=== PATIENT | male | born 1960 | race Caucasian/White ===

== ENCOUNTER 2016-08-06 10:55 | Emergency (ER) | payer SELFPAY ==
[~2016-08-06] VITALS: Ht 177.8 cm; Wt 110.0 kg
[2016-08-06 11:04] VITALS: BP 200/100; PULSE 50; RESP 20; TEMP 98.9; O2SAT 98
[2016-08-06] MEDS ORDERED: FLUO40CA PO (11:11)
[2016-08-06] MEDS ORDERED: LITH300C2 PO (11:11)
[2016-08-06] MEDS ORDERED: ARIP1TAB11 PO (11:11)
[2016-08-06] MEDS ORDERED: ASPI325T PO (11:11)
--- NOTE | 2016-08-06 11:29 | PD ---
HPI Chief Complaint: Psychiatric Symptoms Time Seen by Provider: 11:26 Travel History International Travel<30 days: No Contact w/Intl Traveler<30days: No Traveled to known affect area: No History of Present Illness HPI 56-year-old male that presents to the ED for evaluation of Evans act. Patient was Evans acted by police after apparently he made suicidal statements to follow up with her. Patient apparently wants to kill himself because of worsening depression. Per patient he feels like he needs help. Patient was Evans acted for his unsafety. Patient denies any drugs or alcohol. Patient does have a history of depression and takes medications for it. He does have a history of hypertension. He has no allergies to medication. He has not seen anybody for this. She denies any hallucinations. Per patient he might also be bipolar. Patient is also homeless. [facility] Past Medical History Anxiety: Yes Depression: Yes Diminished Hearing: No Social History Alcohol Use: No Tobacco Use: No Substance Use: No Allergies-Medications (Allergen,Severity, Reaction): Coded Allergies: No Known Allergies (Unverified , 08/06/16) Reported Meds & Prescriptions Reported Meds & Active Scripts Active Reported [place] Carbonate 300 Mg Cap 300 Mg PO BID Aspirin 325 Mg Tab 325 Mg PO DAILY Fluoxetine (Fluoxetine HCl) 40 Mg Cap 40 Cap PO DAILY Aripiprazole 5 Mg Tab 5 Mg PO DAILY Review of Systems Except as stated in HPI: all other systems reviewed are Neg Physical Exam Narrative GENERAL: SKIN: Warm and dry. HEAD: Atraumatic. Normocephalic. EYES: Pupils equal and round. No scleral icterus. No injection or drainage. ENT: No nasal bleeding or discharge. Mucous membranes pink and moist. Tongue is midline. No uvula deviation. NECK: Trachea midline. No JVD. CARDIOVASCULAR: Regular rate and rhythm. No murmurs, S3, S4. RESPIRATORY: No accessory muscle use. Clear to auscultation. Breath sounds equal bilaterally. GASTROINTESTINAL: Abdomen soft, non-tender, nondistended. Hepatic and splenic margins not palpable. MUSCULOSKELETAL: Extremities without clubbing, cyanosis, or edema. No obvious deformities. Full range of motion of the upper and lower extremities bilaterally. 2+ pulses bilaterally. NEUROLOGICAL: Awake and alert. No obvious cranial nerve deficits. Motor grossly within normal limits. Five out of 5 muscle strength in the arms and legs. Normal speech. PSYCHIATRIC: Appropriate mood and affect; insight and judgment normal. Data Data Last Documented VS Vital Signs Date Time Temp Pulse Resp B/P Pulse Ox O2 Delivery O2 Flow Rate FiO2 08/06/16 11:04 98.9 50 20 200/100 98 Orders Complete Blood Count With Diff (08/06/16 11:16) Comprehensive Metabolic Panel (08/06/16 11:16) Drug Screen, Random Urine (08/06/16 11:16) Alcohol (Ethanol) (08/06/16 11:16) Psych Screen (08/06/16 11:16) MDM Medical Decision Making Medical Screen Exam Complete: Yes Emergency Medical Condition: Yes Medical Record Reviewed: Yes Differential Diagnosis Depression versus suicidal ideation versus anxiety versus adjustment disorder versus mood disorder versus bipolar disorder versus schizophrenia versus paranoid disorder versus psychosis versus substance abuse versus alcohol abuse versus alcohol induced psychosis versus homicidality addition versus cutting versus personality disorder Narrative Course 56-year-old male that presents to the ED for evaluation of psych. Patient was properly examined and was found to have signs and symptoms consistent with appears to be psychiatric illness. No sign of acute medical distress. Patient does have a high blood pressure initially but I will have them recheck the blood pressure to make sure this is an accurate reading. Otherwise labs will be done. Patient will be medically clear. Okay to be seen by psych. Mental health screening was discussed with the patient. Diagnosis Primary Impression: Depression Qualified Code: F33.1 - Moderate episode of recurrent major depressive disorder Kendall Parada Aug 06, 2016 11:29
[2016-08-06 11:55] LABS: AUTOMATED NEUTROPHIL # 5.9 TH/MM3 (1.8-7.7); BASOPHIL % 0.5 % (0.0-2.0); EOSINOPHIL # 0.1 TH/MM3 (0-0.4); EOSINOPHIL % 1.3 % (0.0-4.0); HEMATOCRIT 44.1 % (39.0-51.0); HEMO FLAGS DIFF FINAL; LYMPH % 20.2 % (9.0-44.0); LYMPHOCYTE # 1.7 TH/MM3 (1.0-4.8); MEAN CELL VOLUME 89.7 FL (80.0-100.0); MEAN CORPUSCULAR HEMOGLOBIN 31.1 PG (27.0-34.0); MEAN CORPUSCULAR HGB CONC 34.6 % (32.0-36.0); MONO % 7.3 % (0.0-8.0); NEUT % 70.7 % (16.0-70.0); PLATELET COUNT 241 TH/MM3 (150-450); RED BLOOD COUNT 4.92 MIL/MM3 (4.50-5.90); RED CELL DISTRIBUTION WIDTH 13.2 % (11.6-17.2); WHITE BLOOD COUNT 8.4 TH/MM3 (4.0-11.0)
[2016-08-06 12:00] LABS: AMPHETAMINE, URINE NEG (NEG); BARBITURATES, URINE NEG (NEG); COCAINE, URINE NEG (NEG)
[2016-08-06 12:24] LABS: ALKALINE PHOSPHATASE 95 U/L (45-117); ALT (GPT) 30 U/L (12-78); ANION GAP 7 MEQ/L (5-15); AST (GOT) 25 U/L (15-37); BICARBONATE 25.1 MEQ/L (21.0-32.0); BLOOD UREA NITROGEN 11 MG/DL (7-18); CHLORIDE 106 MEQ/L (98-107); GLOMERULAR FILTRATION RATE 88 ML/MIN (>89); POTASSIUM 3.8 MEQ/L (3.5-5.1); SODIUM (NA) 138 MEQ/L (136-145); TOTAL BILIRUBIN ADULT 0.6 MG/DL (0.2-1.0)
[2016-08-06 13:48] VITALS: BP 160/100; PULSE 65; RESP 20; O2SAT 97
[2016-08-06 20:17] VITALS: BP 176/91; PULSE 45; RESP 18; O2SAT 97
[2016-08-06 20:47] VITALS: BP 138/88; PULSE 52; RESP 18
== END 2016-08-06 23:34 ==
LOC: NEDAMB 10:55 → NEPJ 23:34
DX: F33.1 Major depressive disorder, recurrent, moderate (principal)
CPT/HCPCS: 80053; 80178; 80307; 80320; 85025; 99285

== ENCOUNTER 2016-08-08 17:48 | Emergency (ER) | payer SELFPAY ==
[~2016-08-08 17:48] MED LIST: ARIP1TAB11 PO; ASPI325T PO; FLUO40CA PO; LITH300C2 PO
[2016-08-08 17:50] VITALS: BP 179/103; PULSE 64; RESP 15; TEMP 98.1; O2SAT 97
[2016-08-08 18:33] VITALS: BP 170/102; PULSE 56; RESP 17
[2016-08-08 20:35] LABS: AUTOMATED NEUTROPHIL # 5.3 TH/MM3 (1.8-7.7); BASOPHIL # 0.1 TH/MM3 (0-0.2); EOSINOPHIL # 0.1 TH/MM3 (0-0.4); EOSINOPHIL % 1.7 % (0.0-4.0); HEMATOCRIT 41.8 % (39.0-51.0); HEMO FLAGS DIFF FINAL; LYMPH % 22.2 % (9.0-44.0); LYMPHOCYTE # 1.8 TH/MM3 (1.0-4.8); MEAN CELL VOLUME 90.7 FL (80.0-100.0); MEAN CORPUSCULAR HEMOGLOBIN 31.4 PG (27.0-34.0); MEAN CORPUSCULAR HGB CONC 34.6 % (32.0-36.0); MONO % 8.4 % (0.0-8.0); NEUT % 66.7 % (16.0-70.0); PLATELET COUNT 222 TH/MM3 (150-450); RED BLOOD COUNT 4.61 MIL/MM3 (4.50-5.90); WHITE BLOOD COUNT 7.9 TH/MM3 (4.0-11.0)
[2016-08-08 21:01] LABS: ANION GAP 9 MEQ/L (5-15)
[2016-08-08 21:04] LABS: ALKALINE PHOSPHATASE 92 U/L (45-117); ALT (GPT) 32 U/L (12-78); AST (GOT) 25 U/L (15-37); BICARBONATE 24.8 MEQ/L (21.0-32.0); BLOOD UREA NITROGEN 15 MG/DL (7-18); CHLORIDE 104 MEQ/L (98-107); GLOMERULAR FILTRATION RATE 76 ML/MIN (>89); POTASSIUM 3.9 MEQ/L (3.5-5.1); SODIUM (NA) 138 MEQ/L (136-145); TOTAL BILIRUBIN ADULT 0.6 MG/DL (0.2-1.0)
[2016-08-08 21:05] LABS: ACETAMINOPHEN LESS THAN 2.0 MCG/ML (10.0-30.0)
[2016-08-08 21:20] LABS: BLOOD, URINE NEG (NEG); COMMENT (UR) CULT NOT INDICATED; CULTURE IF INDICATED CULT NOT INDICATED; GLUCOSE,URINE NEG (NEG); HYALINE CAST, URINE 1 /lpf (RARE); KETONE, URINE NEG (NEG); NITRITE,URINE NEG (NEG); SQUAMOUS EPITHELIAL CELL URINE <1 /hpf (0-5); URINE COLOR LIGHT-YELLOW (YELLW/STRAW)
[2016-08-08 21:27] LABS: AMPHETAMINE, URINE NEG (NEG); BARBITURATES, URINE NEG (NEG); COCAINE, URINE NEG (NEG)
--- NOTE | 2016-08-08 21:36 | PD ---
HPI Chief Complaint: Suicide Ideation/Attempt Time Seen by Provider: 21:31 Travel History International Travel<30 days: No Contact w/Intl Traveler<30days: No Traveled to known affect area: No History of Present Illness HPI 56-year-old male that presents to the ED for evaluation of suicidal ideation and depression. Patient comes here voluntarily for this. Per patient he took some unknown "poison" to hurt himself but when I ask him or even anybody in the ED ask him what he took he says that is for the "doctor to find out "basically he did this "to see the doctor cares ". He is in no distress. He denies any symptoms. He will not tell me what he took. He does take some blood pressure medication as well as psychiatric medication including lithium. He states that he has not taken this in a while. He denies any chest pain or shortness of breath. During his entire stay here in the ED should his been fine. He states having suicidal ideation and feeling very depressed. No drugs or alcohol. Again I cannot get much history because patient is not very forthcoming with information although he was seen here by me about a week ago with same symptoms except he did not tell me last time that he took something. No fevers chills or sweats. No other medical problems. PFSH Past Medical History Anxiety: Yes Depression: Yes Cardiovascular Problems: Yes Diminished Hearing: No Hypertension: Yes Tetanus Vaccination: Unknown Influenza Vaccination: No Past Surgical History Surgical History: No Previous Surgery Social History Alcohol Use: No Tobacco Use: No Substance Use: No Allergies-Medications (Allergen,Severity, Reaction): Coded Allergies: No Known Allergies (Unverified , 08/08/16) Reported Meds & Prescriptions Reported Meds & Active Scripts Active Reported [place] Carbonate 300 Mg Cap 300 Mg PO BID Aspirin 325 Mg Tab 325 Mg PO DAILY Fluoxetine (Fluoxetine HCl) 40 Mg Cap 40 Cap PO DAILY Aripiprazole 5 Mg Tab 5 Mg PO DAILY Review of Systems Except as stated in HPI: all other systems reviewed are Neg Physical Exam Narrative GENERAL: SKIN: Warm and dry. HEAD: Atraumatic. Normocephalic. EYES: Pupils equal and round 4 mms reactive to light and accomodation. No scleral icterus. No injection or drainage. ENT: No nasal bleeding or discharge. Mucous membranes pink and moist. Tongue is midline. No uvula deviation. NECK: Trachea midline. No JVD. CARDIOVASCULAR: Regular rate and rhythm. No murmurs, S3, S4. RESPIRATORY: No accessory muscle use. Clear to auscultation. Breath sounds equal bilaterally. GASTROINTESTINAL: Abdomen soft, non-tender, nondistended. Hepatic and splenic margins not palpable. MUSCULOSKELETAL: Extremities without clubbing, cyanosis, or edema. No obvious deformities. Full range of motion of the upper and lower extremities bilaterally. 2+ pulses bilaterally. NEUROLOGICAL: Awake and alert. No obvious cranial nerve deficits. Motor grossly within normal limits. Five out of 5 muscle strength in the arms and legs. Normal speech. PSYCHIATRIC: Depressed mood and affect; insight and judgment normal. Data Data Last Documented VS Vital Signs Date Time Temp Pulse Resp B/P Pulse Ox O2 Delivery O2 Flow Rate FiO2 08/08/16 18:36 54 17 96 Room Air 08/08/16 18:33 170/102 98 08/08/16 17:50 98.1 Orders Complete Blood Count With Diff (08/08/16 20:01) Comprehensive Metabolic Panel (08/08/16 20:01) Urinalysis - C+S If Indicated (08/08/16 20:01) Drug Screen, Random Urine (08/08/16 20:01) Electrocardiogram (08/08/16 20:01) Alcohol (Ethanol) (08/08/16 20:01) Salicylates (Aspirin) (08/08/16 20:01) Tylenol (Acetaminophen) (08/08/16 20:01) Psych Screen (08/08/16 20:01) [place] (Li) (08/08/16 20:56) Labs Laboratory Tests Test 08/08/16 08/08/16 19:30 21:00 White Blood Count 7.9 TH/MM3 Red Blood Count 4.61 MIL/MM3 Hemoglobin 14.5 GM/DL Hematocrit 41.8 % Mean Corpuscular Volume 90.7 FL Mean Corpuscular Hemoglobin 31.4 PG Mean Corpuscular Hemoglobin 34.6 % Concent Red Cell Distribution Width 13.0 % Platelet Count 222 TH/MM3 Mean Platelet Volume 8.2 FL Neutrophils (%) (Auto) 66.7 % Lymphocytes (%) (Auto) 22.2 % Monocytes (%) (Auto) 8.4 % Eosinophils (%) (Auto) 1.7 % Basophils (%) (Auto) 1.0 % Neutrophils # (Auto) 5.3 TH/MM3 Lymphocytes # (Auto) 1.8 TH/MM3 Monocytes # (Auto) 0.7 TH/MM3 Eosinophils # (Auto) 0.1 TH/MM3 Basophils # (Auto) 0.1 TH/MM3 CBC Comment DIFF FINAL Differential Comment Sodium Level 138 MEQ/L Potassium Level 3.9 MEQ/L Chloride Level 104 MEQ/L Carbon Dioxide Level 24.8 MEQ/L Anion Gap 9 MEQ/L Blood Urea Nitrogen 15 MG/DL Creatinine 1.02 MG/DL Estimat Glomerular Filtration 76 ML/MIN Rate Random Glucose 68 MG/DL Calcium Level 8.2 MG/DL Total Bilirubin 0.6 MG/DL Aspartate Amino Transf 25 U/L (AST/SGOT) Alanine Aminotransferase 32 U/L (ALT/SGPT) Alkaline Phosphatase 92 U/L Total Protein 6.9 GM/DL Albumin 3.6 GM/DL Salicylates Level 1.9 MG/DL Acetaminophen Level LESS THAN 2.0 MCG/ML Ethyl Alcohol Level LESS THAN 3 MG/DL Urine Color LIGHT-YELLOW Urine Turbidity CLEAR Urine pH 6.0 Urine Specific [place] 1.010 Urine Protein NEG mg/dL Urine Glucose (UA) NEG mg/dL Urine Ketones NEG mg/dL Urine Occult Blood NEG Urine Nitrite NEG Urine Bilirubin NEG Urine Urobilinogen LESS THAN 2.0 MG/DL Urine Leukocyte Esterase NEG Urine WBC 1 /hpf Urine Squamous Epithelial <1 /hpf Cells Urine Hyaline Casts 1 /lpf Microscopic Urinalysis Comment CULT NOT INDICATED MDM Medical Decision Making Medical Screen Exam Complete: Yes Emergency Medical Condition: Yes Medical Record Reviewed: Yes Interpretation(s) tox screen negative CBC & BMP Diagram 08/08/16 19:30 LFTS WNL Differential Diagnosis Depression versus suicidal ideation versus anxiety versus adjustment disorder versus mood disorder versus bipolar disorder versus schizophrenia versus paranoid disorder versus psychosis versus substance abuse versus alcohol abuse versus alcohol induced psychosis versus homicidality addition versus cutting versus personality disorder Narrative Course 56-year-old male that presents to the ED for evaluation of psychiatric illness. Patient was properly examined and was found to have no signs of acute medical distress. Patient tells me that he took some poison but he will not tell me what it is. Unclear if he actually took something or not. Labs were all negative. EKG was within normal limits. No sign of acute medical distress. Patient was medically clear. Okay to be seen by psych. Mental health screening was discussed with the patient. Diagnosis Primary Impression: Depression Qualified Code: F33.1 - Moderate episode of recurrent major depressive disorder Additional Impression: Suicidal ideation Kendall Parada Aug 08, 2016 21:36
[2016-08-09 00:14] VITALS: BP 159/87; PULSE 64; RESP 18
[2016-08-09 01:53] VITALS: BP 143/85; PULSE 57; RESP 18; O2SAT 99
[2016-08-09 06:22] VITALS: BP 142/91; PULSE 50; RESP 19; O2SAT 99
[2016-08-09 07:51] VITALS: BP 142/91
--- NOTE | 2016-08-09 08:12 | MB ---
cc: HUY SPAULDING MD DATE OF CONSULTATION: 08/09/2016 PHYSICIAN REQUESTING CONSULTATION Emergency department. REASON FOR CONSULTATION Voluntary psychiatric evaluation. HISTORY OF PRESENT ILLNESS Mr. Tan is a 56-year-old male who presents voluntarily for psychiatric evaluation. Reviewing the electronic medical record I see that the patient was seen in the ED by the ED provider a few days ago for psychiatric indication. Apparently in the meantime the patient was briefly admitted to [facility] but was just discharged and came back here. The patient is seen and examined. Case was discussed with nurse in the J pod. There has been no evidence of any suicidality or homicidality in the J pod, nor has the patient posed a behavioral disturbance. On my examination this morning the patient is in hospital gown but well groomed and clearly maintaining basic hygiene and attending to his basic needs. He is extremely manipulative with prominent cluster B personality traits. He says that his main problems are that he is "jobless and homeless, in that order." He expects that we will fix this for him. He apparently ate a few cigarette butts prior to coming into the hospital and maintains that this was some sort of suicide attempt. He does not describe any suicidal or homicidal ideation at this time. He does not describe any audiovisual hallucinations, nor are there any delusional beliefs evident. He does seem somewhat dysphoric, and although this may be situational in part, this largely seems manufactured for effect. He does not describe when given the opportunity to do so any depressive or hypomanic/manic symptoms. The remainder of the psychiatric ROS is negative. PAST PSYCHIATRIC HISTORY The patient reports prior diagnosis of minor depression. He is not under the care of a psychiatrist on an outpatient basis. He was discharged from [facility] 2 days ago. He says he has one prior suicide attempt by trying to freeze himself in half-way but cannot provide any details on when this transpired or how he was going to do so. FAMILY HISTORY The patient denies any family history of mental illness or suicide. CHEMICAL DEPENDENCY HISTORY: The patient denies any history of abuse of drugs or alcohol. SOCIAL HISTORY The patient is homeless. He has an eighth grade education. He does not work. He is single with no children. He denies any or legal history. Denies any access to guns or firearms. PAST MEDICAL HISTORY The patient dismissively says that he has "a bunch but that doesn't matter. No one cares." He declines to discuss these in any meaningful detail. REVIEW OF SYSTEMS No reported headache, vision or hearing changes, chest pain, shortness of breath, bowel or bladder issues. No other physical complaints. PHYSICAL EXAMINATION A physical examination was completed in the emergency room by the ER staff and the patient was medically cleared. On my examination today, the patient appears to be in no acute physical distress. He is well-nourished and well-developed. No abnormal motor movements noted. Labs and vital signs reviewed. MENTAL STATUS EXAMINATION The patient is in hospital gown. He is well-groomed. He is awake, alert and oriented x3. No abnormal motor movements noted. Speech is within normal limits for rate, tone and volume. Language and fund of knowledge seem average for age. Mood is somewhat dysphoric but not really depressed and affect is blunted. Thought process limited. No loosening of associations. No evident delusions. No ADH. No SI or HI. Insight and judgment are fair. ASSESSMENT/PLAN 1. Malingering for alf, Z76.5. 2. 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 This is a 56-year-old male with psychiatric history as detailed above who presents voluntarily to the emergency department after consuming some cigarette butts which he reports to be a suicide attempt. The patient seems primarily focused on his joblessness and homelessness and I can detect no signs of any unstable mood, anxiety or psychotic disorder in this patient at this time. He is fairly clearly malingering for alf. He does not meet Krueger Act criteria at this time, nor does he require inpatient psychiatric stabilization. I do think that there is some component of risk related to the patient's personality structure that he might act out in retribution for being discharged from the ED today, but this would not be properly ameliorated by taking an alternate course of action. I will therefore proceed to recommend his discharge from the ED. We will provide him with referrals for mental health resources in the community. The patient to be counseled to return to the psychiatric emergency room for any concerning psychiatric symptoms. Thank you very much for this consultation. Huy Spaulding DC/BRAVO /7:32 AM /7:59 AM ENRICO
--- NOTE | 2016-08-09 15:50 | EKG ---
Date Performed: 08/08/2016 Time Performed: 20:16:05 PTAGE: 56 years EKG: SINUS BRADYCARDIA Clinical correlation is recommended ABNORMAL ECG NO PREVIOUS TRACING DOCTOR: Souleymane Higuera Interpretating Date/Time 08/09/2016 15:48:55
== END 2016-08-09 08:33 | disposition home or self-care (01) ==
LOC: NEPA 17:48 → NEPJ 08-09 08:33
DX: F32.9 Major depressive disorder, single episode, unspecified (principal); R45.851 Suicidal ideations; F41.9 Anxiety disorder, unspecified; I10 Essential (primary) hypertension; R94.31 Abnormal electrocardiogram [ECG] [EKG]
CPT/HCPCS: 80053; 80178; 80307; 80320; 80329; 81001; 85025; 93005; G0480

== ENCOUNTER 2016-08-09 20:56 | Emergency (ER) | payer OTHER ==
[~2016-08-09] VITALS: Ht 182.9 cm; Wt 120.0 kg
[2016-08-09 21:13] VITALS: BP 141/83; PULSE 86; RESP 16; TEMP 98.2; O2SAT 99
--- NOTE | 2016-08-09 21:48 | PD ---
HPI Chief Complaint: Psychiatric Symptoms Time Seen by Provider: 21:48 Travel History International Travel<30 days: No Contact w/Intl Traveler<30days: No Traveled to known affect area: No History of Present Illness HPI 56-year-old male with history of depression presents to the emergency department for psychiatric evaluation. Patient states that he "just can't do it on the streets." He states that he has plan to jump off a building. He is currently homeless and has nowhere to go. States that he is supposed to take medication but he does not. He has no other symptoms to report. Patient was seen and evaluated yesterday here in the emergency department as well for similar complaint. PFSH Past Medical History Anxiety: Yes Depression: Yes Cardiovascular Problems: Yes Diminished Hearing: No Hypertension: Yes Tetanus Vaccination: Unknown Influenza Vaccination: No Past Surgical History Surgical History: No Previous Surgery Social History Alcohol Use: No Tobacco Use: No Substance Use: No Allergies-Medications (Allergen,Severity, Reaction): Coded Allergies: No Known Allergies (Unverified , 08/09/16) Reported Meds & Prescriptions Reported Meds & Active Scripts Active Reported Fluoxetine (Fluoxetine HCl) 40 Mg Cap 40 Cap PO DAILY Aripiprazole 5 Mg Tab 5 Mg PO DAILY Review of Systems Except as stated in HPI: all other systems reviewed are Neg Physical Exam Narrative GENERAL: Well-nourished, well-developed male patient, lying in bed, in no acute distress SKIN: Warm and dry. HEAD: Normocephalic. EYES: No scleral icterus. No injection or drainage. NECK: Supple, trachea midline. No JVD or lymphadenopathy. CARDIOVASCULAR: Regular rate and rhythm without murmurs, gallops, or rubs. RESPIRATORY: Breath sounds equal bilaterally. No accessory muscle use. GASTROINTESTINAL: Abdomen soft, non-tender, nondistended. MUSCULOSKELETAL: No cyanosis, or edema. BACK: Nontender without obvious deformity. No CVA tenderness. Data Data Last Documented VS Vital Signs Date Time Temp Pulse Resp B/P Pulse Ox O2 Delivery O2 Flow Rate FiO2 08/09/16 21:13 98.2 86 16 141/83 99 Orders Psych Screen (08/09/16 21:14) MDM Medical Decision Making Medical Screen Exam Complete: Yes Emergency Medical Condition: Yes Medical Record Reviewed: Yes Differential Diagnosis Mood disorder versus personality disorder versus adjustment reaction disorder versus malingering Narrative Course 56-year-old male presents to the the emergency department under Krueger act for psychiatric evaluation. Patient appears well and without distress. Patient was seen and evaluated yesterday for similar complaint. Patient states that he is homeless and does not want to sleep on the streets. Lab work will not be repeated as it was done yesterday without acute concern. He is medically cleared to undergo psychiatric screening for further evaluation and disposition. Mental health screening discussed with the patient. Psychiatric screen ordered. Diagnosis Primary Impression: Malingering Additional Impression: Adjustment disorder Qualified Code: F43.21 - Adjustment disorder with depressed mood Condition: Stable Pau Calderon Aug 09, 2016 21:48
[2016-08-09 22:37] VITALS: BP 130/89; PULSE 70; RESP 18; O2SAT 99
[2016-08-10 02:26] VITALS: BP 135/84; PULSE 54; RESP 19; O2SAT 100
[2016-08-10 06:42] VITALS: BP 131/70; PULSE 54; RESP 18; O2SAT 100
[2016-08-10 10:33] VITALS: BP 127/70; PULSE 61; RESP 17; O2SAT 97
[2016-08-10 17:56] VITALS: BP 166/74; PULSE 56; RESP 16; O2SAT 94
== END 2016-08-10 19:41 ==
LOC: NEPA 20:56 → NEPJ 08-10 19:41
DX: F43.21 Adjustment disorder with depressed mood (principal); Z76.5 Malingerer [conscious simulation]; I10 Essential (primary) hypertension; Z59.0 Homelessness
CPT/HCPCS: 99284

== ENCOUNTER 2016-08-14 01:29 | Emergency (ER) | payer SELFPAY ==
[2016-08-14] VITALS (7 sets, daily range): BP systolic 135–161; BP diastolic 77–101; PULSE 51–73; RESP 16–18; TEMP 97.1–97.7; O2SAT 94–99
[~2016-08-14 01:29] MED LIST changes: -ASPI325T PO; -LITH300C2 PO
--- NOTE | 2016-08-14 01:51 | PD ---
HPI Chief Complaint: Altered Mental Status Time Seen by Provider: 01:46 Travel History International Travel<30 days: No Contact w/Intl Traveler<30days: No Traveled to known affect area: No History of Present Illness HPI 56-year-old male with history of depression, homelessness, walked to the emergency department because he states he feels confused. [place] to shiver. He states he felt as though he was going to . He walked here because he states he needed a safe place to go to. Although the patient seems confused, he is alert and oriented to person and place. No physical complaints. He has been seen in the emergency department for other times this month and once in June of last year complaining of suicidal ideation. He was cleared by psychiatric screener on August 09. He denies drugs or alcohol use. When asked about suicidal or homicidal ideation, he avoids answering the question. PFSH Past Medical History Anxiety: Yes Depression: Yes Cardiovascular Problems: Yes Diminished Hearing: No Hypertension: Yes Social History Alcohol Use: No Tobacco Use: No Substance Use: No Allergies-Medications (Allergen,Severity, Reaction): Coded Allergies: No Known Allergies (Unverified , 08/14/16) Reported Meds & Prescriptions Reported Meds & Active Scripts Active Reported Fluoxetine (Fluoxetine HCl) 40 Mg Cap 40 Cap PO DAILY Aripiprazole 5 Mg Tab 5 Mg PO DAILY Review of Systems Except as stated in HPI: all other systems reviewed are Neg Physical Exam Narrative GENERAL: Well-developed, well-nourished, awake, alert, GCS 15, no acute distress. SKIN: Warm and dry. No rash. HEAD: Atraumatic. Normocephalic. EYES: Pupils equal and round. No scleral icterus. No injection or drainage. ENT: Mucous membranes pink and moist. NECK: Trachea midline. No JVD. No nuchal rigidity. CARDIOVASCULAR: Regular rate and rhythm. RESPIRATORY: No accessory muscle use. Clear to auscultation. Breath sounds equal bilaterally. GASTROINTESTINAL: Abdomen soft, non-tender, nondistended. MUSCULOSKELETAL: No obvious deformities. No clubbing. No cyanosis. No edema. NEUROLOGICAL: Awake and alert. No obvious cranial nerve deficits. Motor grossly within normal limits. Normal speech. No focal deficits. PSYCHIATRIC: Appropriate mood and affect; insight and judgment normal. Data Data Last Documented VS Vital Signs Date Time Temp Pulse Resp B/P Pulse Ox O2 Delivery O2 Flow Rate FiO2 08/14/16 04:00 52 16 141/79 95 Room Air 08/14/16 01:39 97.4 Orders Alcohol (Ethanol) (08/14/16 01:54) Complete Blood Count With Diff (08/14/16 01:54) Comprehensive Metabolic Panel (08/14/16 01:54) Drug Screen, Random Urine (08/14/16 01:54) Urinalysis - C+S If Indicated (08/14/16 01:54) Ct Brain W/O Iv Contrast(Rout) (08/14/16 01:54) Blood Glucose (08/14/16 01:54) Ecg Monitoring (08/14/16 01:54) Iv Access Insert/Monitor (08/14/16 01:54) Oximetry (08/14/16 01:54) Sodium Chloride 0.9% Flush (Ns Flush) (08/14/16 02:00) Sodium Chlor 0.9% 1000 Ml Inj (Ns 1000 M (08/14/16 01:54) Labs Laboratory Tests Test 08/14/16 08/14/16 02:05 04:45 White Blood Count 8.4 TH/MM3 Red Blood Count 4.90 MIL/MM3 Hemoglobin 15.4 GM/DL Hematocrit 44.1 % Mean Corpuscular Volume 90.0 FL Mean Corpuscular Hemoglobin 31.4 PG Mean Corpuscular Hemoglobin 34.9 % Concent Red Cell Distribution Width 13.1 % Platelet Count 235 TH/MM3 Mean Platelet Volume 7.5 FL Neutrophils (%) (Auto) 54.9 % Lymphocytes (%) (Auto) 34.5 % Monocytes (%) (Auto) 8.4 % Eosinophils (%) (Auto) 1.6 % Basophils (%) (Auto) 0.6 % Neutrophils # (Auto) 4.6 TH/MM3 Lymphocytes # (Auto) 2.9 TH/MM3 Monocytes # (Auto) 0.7 TH/MM3 Eosinophils # (Auto) 0.1 TH/MM3 Basophils # (Auto) 0.1 TH/MM3 CBC Comment DIFF FINAL Differential Comment Sodium Level 141 MEQ/L Potassium Level 4.0 MEQ/L Chloride Level 109 MEQ/L Carbon Dioxide Level 25.3 MEQ/L Anion Gap 7 MEQ/L Blood Urea Nitrogen 19 MG/DL Creatinine 0.90 MG/DL Estimat Glomerular Filtration 87 ML/MIN Rate Random Glucose 77 MG/DL Calcium Level 8.3 MG/DL Total Bilirubin 0.7 MG/DL Aspartate Amino Transf 25 U/L (AST/SGOT) Alanine Aminotransferase 29 U/L (ALT/SGPT) Alkaline Phosphatase 83 U/L Total Protein 6.9 GM/DL Albumin 3.7 GM/DL Ethyl Alcohol Level LESS THAN 3 MG/DL Urine Color YELLOW Urine Turbidity CLEAR Urine pH 6.5 Urine Specific [place] 1.018 Urine Protein NEG mg/dL Urine Glucose (UA) NEG mg/dL Urine Ketones NEG mg/dL Urine Occult Blood NEG Urine Nitrite NEG Urine Bilirubin NEG Urine Urobilinogen LESS THAN 2.0 MG/DL Urine Leukocyte Esterase NEG Urine RBC LESS THAN 1 /hpf Urine WBC 1 /hpf Urine Squamous Epithelial <1 /hpf Cells Urine Mucus FEW /lpf Microscopic Urinalysis Comment CATH-CULT NOT IND Urine Opiates Screen NEG Urine Barbiturates Screen NEG Urine Amphetamines Screen NEG Urine Benzodiazepines Screen NEG Urine Cocaine Screen NEG Urine Cannabinoids Screen NEG MDM Medical Decision Making Medical Screen Exam Complete: Yes Emergency Medical Condition: Yes Medical Record Reviewed: Yes Interpretation(s) EKG: Sinus, rate 56, left axis deviation, LVH, no acute ischemic abnormality. Differential Diagnosis Malingering, alcohol intoxication, drug intoxication, intracranial normality, meningitis/encephalitis unlikely Narrative Course Vital signs reviewed. CBC is unremarkable. CMP is unremarkable. Alcohol level is negative. UA is not suggestive of UTI. Urine drug screen is negative for all drugs tested. CT head read as unremarkable study. The patient was made aware of all findings. He is sleeping comfortably. He now tells me that he feels depressed because he is homeless and feels like killing himself. He is medically cleared for psychiatric evaluation and disposition by them. Diagnosis Primary Impression: Malingering Referrals: Primary Care Physician 3 days Additional Instructions: Follow-up with a primary care physician this week. Return to the emergency department for worsening symptoms or any other concerns. Disposition: 01 DISCHARGE HOME Condition: Jose Sims MD Aug 14, 2016 01:51 Return to the emergency department for worsening symptoms or any other concerns. Disposition: 01 DISCHARGE HOME Condition: Jose Sims MD Aug 14, 2016 01:51
[2016-08-14] MEDS ORDERED: SODIUM CHLOR 0.9% 1000 ML INJ 1,000 ML IV SCH (01:54)
[2016-08-14] MEDS ORDERED: SODIUM CHLORIDE 0.9% FLUSH 5 ML FLUSH IVF PRN (02:00)
[2016-08-14 02:20] LABS: AUTOMATED NEUTROPHIL # 4.6 TH/MM3 (1.8-7.7); BASOPHIL # 0.1 TH/MM3 (0-0.2); BASOPHIL % 0.6 % (0.0-2.0); EOSINOPHIL # 0.1 TH/MM3 (0-0.4); EOSINOPHIL % 1.6 % (0.0-4.0); HEMATOCRIT 44.1 % (39.0-51.0); HEMO FLAGS DIFF FINAL; LYMPH % 34.5 % (9.0-44.0); LYMPHOCYTE # 2.9 TH/MM3 (1.0-4.8); MEAN CORPUSCULAR HEMOGLOBIN 31.4 PG (27.0-34.0); MEAN CORPUSCULAR HGB CONC 34.9 % (32.0-36.0); MONO % 8.4 % (0.0-8.0); NEUT % 54.9 % (16.0-70.0); PLATELET COUNT 235 TH/MM3 (150-450); RED CELL DISTRIBUTION WIDTH 13.1 % (11.6-17.2); WHITE BLOOD COUNT 8.4 TH/MM3 (4.0-11.0)
[2016-08-14 02:42] LABS: ALKALINE PHOSPHATASE 83 U/L (45-117); TOTAL BILIRUBIN ADULT 0.7 MG/DL (0.2-1.0)
[2016-08-14 02:43] LABS: ALT (GPT) 29 U/L (12-78); ANION GAP 7 MEQ/L (5-15); AST (GOT) 25 U/L (15-37); BICARBONATE 25.3 MEQ/L (21.0-32.0); BLOOD UREA NITROGEN 19 MG/DL (7-18); CHLORIDE 109 MEQ/L (98-107); GLOMERULAR FILTRATION RATE 87 ML/MIN (>89); SODIUM (NA) 141 MEQ/L (136-145)
--- NOTE | 2016-08-14 03:43 | RADRPT ---
EXAM DATE/TIME: 08/14/2016 03:01 [facility] COMPARISON: No previous studies available for comparison. INDICATIONS : Altered mental status. RADIATION DOSE: 48.63 CTDIvol (mGy) MEDICAL HISTORY : Hypertension. SURGICAL HISTORY : None. ENCOUNTER: Initial ACUITY: 1 day PAIN SCALE: 0/10 LOCATION: cranial TECHNIQUE: Multiple contiguous axial images were obtained of the head. Using automated exposure control and adj ustment of the mA and/or kV according to patient size, radiation dose was kept as low as reasonably a chievable to obtain optimal diagnostic quality images. FINDINGS: There is no evidence for intracranial hemorrhage, mass effect, mass lesions, edema, or extra-axial fl uid collections. The visualized bony structures appear intact. The ventricles are normal size for t he patient's age. There are no signs of acute infarction for technique. CONCLUSION: Unremarkable study. Sreedhar Solis MD on August 14, 2016 at 3:41 Board Certified Radiologist. This report was verified electronically.
[2016-08-14 04:54] LABS: BLOOD, URINE NEG (NEG); GLUCOSE,URINE NEG (NEG); KETONE, URINE NEG (NEG); MUCUS URINE FEW /lpf (OCC); NITRITE,URINE NEG (NEG); PH, URINE 6.5 (5.0-8.5); SQUAMOUS EPITHELIAL CELL URINE <1 /hpf (0-5); URINE COLOR YELLOW (YELLW/STRAW)
[2016-08-14 04:55] LABS: COMMENT (UR) CATH-CULT NOT IND; CULTURE IF INDICATED CATH CULTURE NOT IND
[2016-08-14 05:01] LABS: AMPHETAMINE, URINE NEG (NEG); BARBITURATES, URINE NEG (NEG); COCAINE, URINE NEG (NEG)
--- NOTE | 2016-08-14 08:22 | MB ---
cc: HUY MEDINA DATE OF CONSULTATION: 08/14/2016 PHYSICIAN REQUESTING CONSULTATION Emergency Department REASON FOR CONSULTATION Voluntary psychiatric evaluation. Mr. Tan is a 56-year-old male who presented voluntarily to the emergency department with complaints of being a safe place to go. 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 Following my consultation the patient presented again to the ED threatening to jump off of a building and was transferred to [facility]. He was apparently just recently discharged from [facility] and presented here. Patient seen and examined. Chart reviewed. Case discussed with nurse in the J-pod. There has been no evidence of any suicidal or homicidal behavior during observation in the J-pod. On my examination today, the patient is an extremely vague historian. He continues to say that his chief issues are his joblessness and homelessness. He does not describe any issues with mood, anxiety or delusional material. He does not describe any audiovisual hallucinations. The patient essentially describes no psychiatric symptoms at all. He is chiefly concerned with his lack of stable housing and social resources. The remainder of the psychiatric ROS is negative. Past psychiatric history, family history, chemical dependency history and social history are all unchanged from my assessment within the last week except to say that the patient has been admitted to the crisis stabilization unit at [facility] in the meanwhile and was apparently discharged from there. The patient seems to say that he was provided with some medications but has not been taking them. PAST MEDICAL HISTORY See electronic medical record. REVIEW OF SYSTEMS No reported physical complaints. PHYSICAL EXAMINATION Vital signs: Temperature 97.1, pulse 51, respirations 18, blood pressure 137/83, pulse oximetry 99% on room air. The physical examination was completed in the emergency room by the ER staff and the patient has been medically cleared. On my examination today, the patient appears to be in no acute physical distress. I have reviewed his CBC which is unremarkable, CMP which is remarkable only for mildly decreased GFR. Toxicology is negative and alcohol level is undetectable. Urinalysis is bland. Head CT is read as unremarkable. MENTAL STATUS EXAMINATION The patient is in a hospital gown. He is fairly well-groomed and certainly maintaining basic hygiene. Awake and alert and oriented x3. No abnormal motor movements noted. No signs of delirium. Speech is within normal limits for rate, tone and volume. Language and fund of knowledge seem average for age. No issues with mood and affect is blunted. Thought process fairly linear. No loosening of associations. No delusional material. No reported audiovisual hallucinations. The patient does not appear internally stimulated. No suicidal or homicidal ideation. Insight and judgment are fair. ASSESSMENT AND PLAN 1. Adjustment disorder, unspecified, F43.20. 2. 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 This is a 56-year-old male with psychiatric history as detailed above who presents on a voluntary basis to the ED apparently with chiefly social complaints. A psychiatric evaluation has been requested. The patient has been seen in the ED for psychiatric issues on the , the , the and now the 14 of August. He does not describe any active psychiatric issues to me. He does not describe any suicidality or homicidality. I suspect as before that the patient continues to malinger psychiatric and other symptoms for intermediate as this seems to be his primary concern. The patient is at low risk of harm to self/others from a mental illness, and there is no indication of unstable mental illness in this patient at this time. I see no indication for psychiatric admission at this time. The patient does not meet Krueger Act criteria at this time. Disposition is as per emergency department. Thank you very much for this consultation. Huy VERAS /8:00 AM /8:13 AM [facility]
--- NOTE | 2016-08-14 22:43 | EKG ---
Date Performed: 08/14/2016 Time Performed: 00:44:11 PTAGE: 56 years EKG: SINUS BRADYCARDIA MODERATE VOLTAGE CRITERIA FOR LVH, CONSIDER NORMAL VARIANT BORDERLINE ECG PREVIOUS TRACING : 08/08/2016 20.16 DOCTOR: Brenden Masterson Interpretating Date/Time 08/14/2016 22:41:36
== END 2016-08-14 17:11 | disposition home or self-care (01) ==
LOC: NEPE 01:29 → NEPJ 17:11
DX: F43.20 Adjustment disorder, unspecified (principal); Z76.5 Malingerer [conscious simulation]; I10 Essential (primary) hypertension; Z59.0 Homelessness; Z56.0 Unemployment, unspecified; R00.1 Bradycardia, unspecified
CPT/HCPCS: 70450; 80053; 80307; 80320; 81001; 85025; 93005; 96360; 99285; J7030